=== PATIENT | female | born 1945 | race American Indian/Alaskan Native ===

== ENCOUNTER 2016-04-20 09:55 | Outpatient (CLI) | payer MEDICARE, OTHER ==
--- NOTE | 2016-04-22 11:42 | PET Report ---
PET/CT:04/20/16 09:55:00 CLINICAL: Colon cancer restaging. RADIOPHARMACEUTICAL: 14.2mCi F18-FDG. COMPARISON: 09/29/14 PET/CT TECHNIQUE- Following intravenous injection of F-18 FDG and an approximately 60 minute uptake period, CT and PET images from the mid skull to the upper thighs were acquired with the patient in the fasted state. No contrast was administered. The CT protocol used for this PET CT study is designed for attenuation correction and anatomic localization of PET abnormalities. This metal hardener CT is not desired to produce and cannot replace, vflon-vs-ajr-art diagnostic CT scans with specific imaging protocols for different body parts and indications. Plasma glucose at the time of this test: 123g/dl. The standardized uptake values (SUV) are normalized to patient body weight and indicate the highest activity concentration (SUV max) in a given disease site. FINDINGS: Brain--Physiologic FDG uptake in the visualized regions of the brain. Neck--Physiologic FDG uptake . Chest--Physiologic FDG uptake in mediastinal blood pool and myocardium. Lungs--No abnormal uptake. No pulmonary nodule or mass. Pleura/pericardium--No abnormal uptake. Thoracic nodes--No abnormal uptake. Hepatobiliary--No abnormal uptake. Liver background SUV mean, as a reference for comparing FDG studies, is 3.8 compared to 3.2 on the last exam. No liver mass. Status post cholecystectomy. Spleen--No abnormal uptake. Pancreas--No abnormal uptake. Adrenal Glands--No abnormal uptake. Kidneys/Ureters/Bladder--No abnormal uptake. Abdominopelvic Nodes--No abnormal uptake. Bowel/Peritoneum/Mesentery--No abnormal uptake. Status post right hemicolectomy with a normal ileotransverse anastomosis. Pelvic organs--No abnormal uptake. Bones/Soft Tissues--No abnormal uptake. No suspicious bone lesions. IMPRESSION- Negative study.
== END 2016-04-20 09:56 | disposition home or self-care (01) ==
LOC: PET 09:55
PROVIDERS: ATTEND Internal Medicine Hematology
DX: C18.2 Malignant neoplasm of ascending colon (principal); Z90.49 Acquired absence of other specified parts of digestive tract
CPT/HCPCS: 78815; 82962; A9552

== ENCOUNTER 2017-05-03 06:51 | Outpatient (CLI) | payer MEDICARE ==
--- NOTE | 2017-05-03 15:00 | PET Report ---
PET/CT:05/03/17 06:51:00 CLINICAL: Colon cancer restaging. RADIOPHARMACEUTICAL: 15.08mCi F18-FDG. COMPARISON: 04/20/16 PET/CT TECHNIQUE- Following intravenous injection of F-18 FDG and an approximately 60 minute uptake period, CT and PET images from the mid skull to the upper thighs were acquired with the patient in the fasted state. No contrast was administered. The CT protocol used for this PET CT study is designed for attenuation correction and anatomic localization of PET abnormalities. This ampoule examiner CT is not desired to produce and cannot replace, luhpj-cs-kbz-art diagnostic CT scans with specific imaging protocols for different body parts and indications. Plasma glucose at the time of this test: 138g/dl. The standardized uptake values (SUV) are normalized to patient body weight and indicate the highest activity concentration (SUV max) in a given disease site. FINDINGS: Brain--Physiologic FDG uptake in the visualized regions of the brain. Neck--Physiologic FDG uptake . Chest--Physiologic FDG uptake in mediastinal blood pool and myocardium. Lungs--No abnormal uptake. No pulmonary nodule or mass. Pleura/pericardium--No abnormal uptake. Thoracic nodes--No abnormal uptake. Hepatobiliary--Mild right anterior perihepatic ascites and new focal FDG uptake in the adjacent right lobe with SUV 4.1. No lesion is identified by CT. Liver background SUV mean, as a reference for comparing FDG studies, is 2.9 compared to 4.0 on the last exam. Spleen--No abnormal uptake. Pancreas--No abnormal uptake. Adrenal Glands--No abnormal uptake. Kidneys/Ureters/Bladder--No abnormal uptake. Abdominopelvic Nodes--No abnormal uptake. Bowel/Peritoneum/Mesentery--Multiple FDG avid mesenteric masses which are new compared to the prior exam. The largest is in the left lower quadrant in the left paracolic gutter and measures 4.7 x 2.9 cm with SUV 5.0. A more inferior left lower quadrant mass measures 4.0 x 2.6 cm with SUV 5.3. An FDG avid right lower quadrant mass extends to the peritoneum and measures approximately 3.0 x 3.3 cm with SUV 5.4. One a more bowel loops appears to be involved with this mass. A more inferior midline FDG avid pelvic mass lies superior to the bladder and measures approximately 4.2 x 3.3 cm with SUV 8.4. Pelvic organs--No abnormal uptake. Bones/Soft Tissues--No abnormal uptake. No suspicious bone lesions. IMPRESSION- 1. 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 At least 2 of the masses appear to involve small bowel loops. However, no evidence of bowel obstruction. 2. A single right hepatic metastasis. 3. No evidence of pulmonary, skeletal or prabha metastasis.
== END 2017-05-03 06:52 | disposition home or self-care (01) ==
LOC: PET 06:51
PROVIDERS: ATTEND Internal Medicine Hematology
DX: C18.2 Malignant neoplasm of ascending colon (principal); R18.8 Other ascites; Z79.899 Other long term (current) drug therapy
CPT/HCPCS: 78815; 82962; A9552

== ENCOUNTER 2017-05-21 06:41 | Day surgery (SDC) | payer MEDICARE ==
[2017-05-21] MEDS ORDERED: SUBLIMAZE IV ONE (08:32)
[2017-05-21] MEDS ORDERED: VERSED IV ONE ×2 (08:32→09:56)
[2017-05-21 08:48] LABS: Basophils % (Auto) 0.4 % (0.0-1.8); Eosinophils # (Auto) 0.1 K/mm3 (0.0-0.4); Eosinophils % (Auto) 1.8 % (0.0-4.3); Hemoglobin 9.4 gm/dl (10.1-14.3); Lymphocytes # (Auto) 1.3 K/mm3 (1.2-5.4); Lymphocytes % (Auto) 15.4 % (13.4-35.0); Mean Corpuscular HGB Conc 32 % (30-34); Mean Corpuscular Hemoglobin 27 pg (28-32); Mean Corpuscular Volume 83 fl (79-97); Monocytes # (Auto) 0.6 K/mm3 (0.0-0.8); Monocytes % (Auto) 7.2 % (0.0-7.3); Platelet Count 366 K/mm3 (140-440); Red Blood Count 3.49 M/mm3 (3.65-5.03); Red Cell Distribution Width 16.2 % (13.2-15.2)
[2017-05-21 08:58] LABS: INR 0.97 (0.87-1.13)
[2017-05-21 08:59] LABS: Partial Thromboplastin Time 30.1 Sec. (24.2-36.6)
--- NOTE | 2017-05-21 11:16 | Cat Scan Report ---
CT BIOPSY OF ABDOMINAL/RETROPERITONEAL MASS HISTORY: Malignant neoplasm of colon, omental masses. DESCRIPTION OF PROCEDURE: Informed consent was obtained. Sterile technique was utilized. 1% lidocaine for skin anesthesia. Moderate sedation was accomplished with Versed and fentanyl. The patient was sedated for 15 minutes. Independent cardiorespiratory monitoring by RN. Intraobserver time of [address] guidance, a 17-gauge introducer needle was advanced to the leading edge of a 4.9 x 3.1 cm omental mass in the left lower quadrant. A single 2.2 cm 18-gauge core biopsy was obtained. Pathology was on site to handle the sample. No complications. IMPRESSION: Successful CT-guided biopsy of an omental mass in the left lower quadrant measuring 4.9 x 3.1 cm.
[2017-05-21 11:44] VITALS: BP 125/58
== END 2017-05-21 12:10 | disposition home or self-care (01) ==
LOC: CATHLABREC 06:41 → EDSTATUS 08:30 → CATHLABREC 12:10
PROVIDERS: ATTEND Internal Medicine Hematology & Oncology
DX: C78.6 Secondary malignant neoplasm of retroperitoneum and peritoneum (principal); C18.2 Malignant neoplasm of ascending colon; Z79.01 Long term (current) use of anticoagulants
CPT/HCPCS: 36415; 49180; 77012; 85025; 85610; 85730; 88173; 88305; 88333; 88342; J2250; J3010